=== PATIENT | female | born 1955 | race African-American/Black ===

== ENCOUNTER 2016-12-08 09:22 | Emergency (ER) | payer MEDICAID ==
[~2016-12-08] VITALS: Ht 172.7 cm; Wt 73.0 kg
[~2016-12-08 09:22] MED LIST: ASPIRIN PO; CALCIUM PO
[2016-12-08] MEDS ORDERED: IBUPROFEN 600MG TABLET PO STA (11:46)
[2016-12-08 12:24] LABS: BASOPHILS % 0.6 % (0.0-2.0); EOSINOPHILS % 1.6 % (0.0-5.0); HEMATOCRIT. 34.6 % (36.0-48.0); HEMOGLOBIN. 11.4 g/dL (12.0-16.0); LYMPHOCYTES % 21.1 % (20.0-50.0); MEAN CORPUSCULAR HEMOGLOBIN 26.5 pg (28.0-32.0); MEAN CORPUSCULAR VOLUME 80.3 fL (81.0-99.0); MEAN PLATELET VOLUME 10.2 fl (7.4-10.4); MONOCYTES % 6.5 % (2.0-8.0); NEUTROPHILS % 70.2 % (40.0-76.0); PLATELET 127 x1000/uL (130-400)
[2016-12-08 12:27] LABS: CHLORIDE 107 mEq/L (98-107)
[2016-12-08 12:35] LABS: CARBON DIOXIDE 28 mEq/L (21-32)
[2016-12-08 15:15] VITALS: BP 133/86
[2016-12-08] MEDS ORDERED: PENICILLIN G BENZATHINE 1,200,000 UNITS/2ML SYR IM ONE (16:15)
== END 2016-12-08 16:36 | disposition home or self-care (01) ==
LOC: ER 11:01
DX: J03.90 Acute tonsillitis, unspecified (principal); J44.9 Chronic obstructive pulmonary disease, unspecified; I10 Essential (primary) hypertension; Z86.73 Personal history of transient ischemic attack (TIA), and cerebral infarction without residual deficits; Z90.710 Acquired absence of both cervix and uterus
CPT/HCPCS: 36415; 70490; 71020; 80053; 85025; 87070; 87430; 99285

== ENCOUNTER 2019-09-05 08:18 | Emergency (ER) | payer MEDICAID ==
[~2019-09-05] VITALS: Ht 172.7 cm; Wt 82.0 kg
[2019-09-05 08:33] VITALS: BP 146/89
[2019-09-05] MEDS ORDERED: TETANUS, DIPHTHERIA, PERTUSSIS VAC/PF 0.5ML (>7YR OLD) IM ONE (10:00)
== END 2019-09-05 10:45 | disposition home or self-care (01) ==
LOC: ER 08:18
DX: S80.862A Insect bite (nonvenomous), left lower leg, initial encounter (principal); S80.861A Insect bite (nonvenomous), right lower leg, initial encounter; W57.XXXA Bitten or stung by nonvenomous insect and other nonvenomous arthropods, initial encounter; Y93.89 Activity, other specified; Y92.89 Other specified places as the place of occurrence of the external cause; Y99.8 Other external cause status; I10 Essential (primary) hypertension; Z86.73 Personal history of transient ischemic attack (TIA), and cerebral infarction without residual deficits; Z90.710 Acquired absence of both cervix and uterus
CPT/HCPCS: 90471; 90715; 99283

== ENCOUNTER 2022-11-19 09:44 | Emergency (ER) | payer MEDICARE, MEDICAID ==
[~2022-11-19] VITALS: Ht 172.7 cm; Wt 86.0 kg
[~2022-11-19 09:44] MED LIST changes: +AMLO2.5T45 PO; +APIX5TAB PO; -ASPIRIN PO; +ATOR40TA70 PO; +CALC-1098 MT; -CALCIUM PO; +CETI10TA11 PO; +CHOL400D2 PO; +FAMO20TA8 PO; +MULT-1146 PO; +TOPUD PO
[2022-11-19 09:50] VITALS: BP 137/79; RESP 20; TEMP 98.4; O2SAT 100
[2022-11-19 09:51] VITALS: PULSE 110
[2022-11-19] MEDS ORDERED: HYDR453.3 TP (10:15)
[2022-11-19] MEDS ORDERED: IBUP-2028 MT (10:15)
== END 2022-11-19 10:30 | disposition home or self-care (01) ==
LOC: ER 09:44
DX: S40.861A Insect bite (nonvenomous) of right upper arm, initial encounter (principal); W57.XXXA Bitten or stung by nonvenomous insect and other nonvenomous arthropods, initial encounter; Y93.89 Activity, other specified; Y92.89 Other specified places as the place of occurrence of the external cause; Y99.8 Other external cause status
CPT/HCPCS: 99282

== ENCOUNTER 2023-01-05 09:44 | Emergency (ER) | payer MEDICARE, MEDICAID ==
[~2023-01-05] VITALS: Ht 172.7 cm; Wt 91.0 kg
[~2023-01-05 09:44] MED LIST changes: +HYDR453.3 TP; +IBUP-2028 MT
[2023-01-05 09:58] VITALS: O2SAT 100
[2023-01-05 13:01] VITALS: BP 127/64; PULSE 82; RESP 16; TEMP 98.2
== END 2023-01-05 13:01 | disposition home or self-care (01) ==
LOC: ER 10:01
DX: B34.9 Viral infection, unspecified (principal); I48.91 Unspecified atrial fibrillation; I10 Essential (primary) hypertension; Z86.73 Personal history of transient ischemic attack (TIA), and cerebral infarction without residual deficits; Z90.710 Acquired absence of both cervix and uterus; Z79.899 Other long term (current) drug therapy; Z20.822 Contact with and (suspected) exposure to COVID-19
CPT/HCPCS: 99284; 71045; 87426; 87804 ×2; C9803

== ENCOUNTER 2023-09-29 09:06 | Emergency (ER) | payer MEDICARE, MEDICAID ==
[~2023-09-29] VITALS: Ht 175.3 cm; Wt 86.0 kg
[2023-09-29 09:10] VITALS: BP 118/80; PULSE 56; RESP 20; TEMP 98.3; O2SAT 98
[2023-09-29 11:44] LABS: CLARITY URINE CLEAR (CLEAR); COLOR URINE YELLOW (YELLOW); GLUCOSE URINE NEGATIVE (NEGATIVE); KETONES URINE NEGATIVE (NEGATIVE); LEUKOCYTE ESTERASE URINE 1+ (NEGATIVE); NITRITE URINE NEGATIVE (NEGATIVE); OCCULT BLOOD URINE TRACE (NEGATIVE); PROTEIN URINE NEGATIVE (NEGATIVE); SPECIFIC GRAVITY URINE 1.012 (1.005-1.030); UROBILINOGEN URINE 0.2 E.U./dL (0.2-1.0)
[2023-09-29 12:05] LABS: BACTERIA URINE 2+; SQUAMOUS EPITHELIAL CELL URINE 2+ /lpf (RARE/1+); YEAST URINE NONE SEEN
[2023-09-29] MEDS ORDERED: SULF1TAB48 MT (12:24)
== END 2023-09-29 12:55 | disposition home or self-care (01) ==
LOC: ER 09:06
DX: N39.0 Urinary tract infection, site not specified (principal); E11.9 Type 2 diabetes mellitus without complications; I10 Essential (primary) hypertension; I48.91 Unspecified atrial fibrillation; Z79.899 Other long term (current) drug therapy; Z86.73 Personal history of transient ischemic attack (TIA), and cerebral infarction without residual deficits
CPT/HCPCS: 81003; 82962; 87077; 87186; 99283

== ENCOUNTER → 2024-06-16 | Outpatient (CLI) | payer MEDICARE, MEDICAID ==
[~2024-06-16] VITALS: Ht 172.7 cm; Wt 90.7 kg
[~2024-06-16] MED LIST changes: +IOHEXOL-350 100 ML BOTTLE ONE; +NITROGLYCERIN SPRAY/4.9GM CAN TL NR; +SULF1TAB48 MT
== END | disposition home or self-care (01) ==
LOC: CT 09:22
PROVIDERS: ATTEND Internal Medicine
DX: Z13.6 Encounter for screening for cardiovascular disorders (principal); I10 Essential (primary) hypertension; I48.0 Paroxysmal atrial fibrillation
CPT/HCPCS: 75571; Q9967

== ENCOUNTER 2024-11-27 11:02 | Emergency (ER) | payer MEDICARE, MEDICAID ==
[~2024-11-27] VITALS: Ht 175.3 cm; Wt 91.0 kg
[~2024-11-27 11:02] MED LIST changes: -IOHEXOL-350 100 ML BOTTLE ONE; -NITROGLYCERIN SPRAY/4.9GM CAN TL NR
[2024-11-27 11:11] VITALS: TEMP 36.6; O2SAT 98
[2024-11-27 13:09] VITALS: BP 121/80; PULSE 63; RESP 18; O2SAT 100
== END 2024-11-27 13:11 | disposition home or self-care (01) ==
LOC: ER 11:39
DX: S90.32XA Contusion of left foot, initial encounter (principal); I10 Essential (primary) hypertension; I48.91 Unspecified atrial fibrillation; Z86.73 Personal history of transient ischemic attack (TIA), and cerebral infarction without residual deficits; Z79.899 Other long term (current) drug therapy; Z79.01 Long term (current) use of anticoagulants; Z90.710 Acquired absence of both cervix and uterus; Z88.8 Allergy status to other drugs, medicaments and biological substances; Z87.442 Personal history of urinary calculi; W22.09XA Striking against other stationary object, initial encounter; Y93.89 Activity, other specified; Y92.89 Other specified places as the place of occurrence of the external cause; Y99.8 Other external cause status
CPT/HCPCS: 73630; 99283

== ENCOUNTER 2025-01-08 08:06 | Emergency (ER) | payer MEDICARE, MEDICAID ==
[~2025-01-08] VITALS: Ht 172.7 cm; Wt 102.0 kg
[2025-01-08 08:08] VITALS: TEMP 36.8; O2SAT 99
[2025-01-08 08:39] LABS: BASOPHILS % 1.3 % (0.0-2.0); EOSINOPHILS % 4.2 % (0.0-5.0); HEMATOCRIT. 37.8 % (36.0-48.0); HEMOGLOBIN. 12.4 g/dL (12.0-16.0); LYMPHOCYTES % 33.8 % (20.0-50.0); MEAN PLATELET VOLUME 8.8 fl (7.4-10.4); MONOCYTES % 6.5 % (2.0-8.0); NEUTROPHILS % 54.2 % (40.0-76.0); PLATELET 210 x1000/uL (130-400); RED BLOOD CELL COUNT 4.73 mill/uL (4.2-5.4); RED CELL DISTRIBUTION WIDTH 14.4 % (11.6-14.6)
[2025-01-08 08:53] LABS: CREATININE 1.0 mg/dL (0.6-1.0); UREA NITROGEN BLOOD 8 mg/dL (9-23)
[2025-01-08 09:27] VITALS: BP 146/91; PULSE 67; RESP 15; O2SAT 98
[2025-01-08 09:57] LABS: INFLUENZA TYPE A Presumptive Negative (Pres. Neg.); INFLUENZA TYPE B Presumptive Negative (Pres. Neg.)
== END 2025-01-08 09:29 | disposition home or self-care (01) ==
LOC: ER 08:06
DX: B34.9 Viral infection, unspecified (principal); I10 Essential (primary) hypertension; Z79.899 Other long term (current) drug therapy; Z86.73 Personal history of transient ischemic attack (TIA), and cerebral infarction without residual deficits; Z90.710 Acquired absence of both cervix and uterus; Z88.8 Allergy status to other drugs, medicaments and biological substances; Z20.822 Contact with and (suspected) exposure to COVID-19
CPT/HCPCS: 36415; 71045; 80048; 85025; 87426; 87804; 99284